=== PATIENT | male | born 2000 | race Caucasian/White ===

== ENCOUNTER 2024-06-15 23:20 | Emergency (ER) | payer SELFPAY ==
[~2024-06-15] VITALS: Ht 167.6 cm; Wt 81.6 kg
[2024-06-15 23:28] VITALS: BP 138/74; PULSE 88; RESP 16; TEMP 97.4; O2SAT 99
== END 2024-06-15 23:37 ==
LOC: MED 23:20
DX: Z02.89 Encounter for other administrative examinations (principal); V89.2XXA Person injured in unspecified motor-vehicle accident, traffic, initial encounter; Y93.89 Activity, other specified; Y92.410 Unspecified street and highway as the place of occurrence of the external cause; Y99.8 Other external cause status
CPT/HCPCS: 99283